=== PATIENT | male | born 1960 | race Caucasian/White ===

== ENCOUNTER 2019-07-31 09:17 | Day surgery (SDC) | payer BC ==
[2019-07-29 10:55] VITALS: BMI 40.6
[~2019-07-31 09:17] MED LIST: LIDOCAINE 1% 20 ML VIAL (10MG/ML) FOR IV START INTRADERMA PRN
[2019-07-31 09:42] VITALS: TEMP 97.9
[2019-07-31] MEDS: LACTATED RINGERS 1,000 ML IV SCH ×2 (09:58→10:12)
[2019-07-31 10:04] LABS: Glucose,Whole Blood 149 mg/dL (75-99)
[2019-07-31] MEDS ORDERED: PROPOFOL 10 MG/ML 20 ML VIAL IV ONE (10:14)
--- NOTE | 2019-07-31 10:55 | P.PCN ---
Date of Procedure: 07/31/19 Description of Procedure: BRIEF HISTORY: Patient is a 59-year-old pleasant male scheduled for an elective colonoscopy as a part of evaluation of blood in the stool. Patient reports last colonoscopy approximately 3 years ago. No change in bowel habits, gross blood per rectum or abdominal pain. PROCEDURE PERFORMED: Colonoscopy with polypectomy. PREOPERATIVE DIAGNOSIS: Blood in stool, last colonoscopy 3 years ago. ESTIMATED BLOOD LOSS: Minimal. IV sedation per Anesthesia. PROCEDURE: After informed consent was obtained, the patient, was brought into the endoscopy unit. IV sedation was administered by Anesthesia under continuous monitoring. Digital rectal examination was normal. Initially the Olympus CF-190 flexible video colonoscope was then inserted in the rectum, gradually advanced into the cecum without any difficulty. Careful examination was performed as the scope was gradually being withdrawn. Ileocecal valve and the appendiceal orifice were visualized and appeared normal. Prep was excellent. Mucosa of the cecum, ascending colon, transverse colon, descending colon, sigmoid colon, and rectum appeared normal. Multiple scattered diverticula in the left colon. 5 mm flat sigmoid polyp removed with cold snare polypectomy. Retroflexion was performed in the rectum and no lesions were seen, low-grade internal hemorrhoids. The patient tolerated the procedure well. IMPRESSION: Sigmoid polyp removed with cold snare polypectomy. Mild left colonic diverticulosis. Low-grade internal hemorrhoids. RECOMMENDATIONS: Findings of this examination were discussed with the patient his . Okay to resume diet. Okay to resume medications. Await pathology from polypectomy. Recommend repeat colonoscopy in 5 years for screening for a personal history of colon polyps.
[2019-07-31 10:56] VITALS: RESP 16
[2019-07-31 11:04] VITALS: BP 104/43; PULSE 78
== END 2019-07-31 11:24 | disposition home or self-care (01) ==
LOC: ORWHC2ENDO 09:17
PROVIDERS: ATTEND Internal Medicine
DX: D12.5 Benign neoplasm of sigmoid colon (principal); K57.30 Diverticulosis of large intestine without perforation or abscess without bleeding; K64.8 Other hemorrhoids; Z87.891 Personal history of nicotine dependence; Z90.49 Acquired absence of other specified parts of digestive tract; I10 Essential (primary) hypertension; E78.5 Hyperlipidemia, unspecified; E11.9 Type 2 diabetes mellitus without complications; E07.9 Disorder of thyroid, unspecified; N40.0 Benign prostatic hyperplasia without lower urinary tract symptoms; F39 Unspecified mood [affective] disorder; Z79.82 Long term (current) use of aspirin; Z79.890 Hormone replacement therapy; Z79.4 Long term (current) use of insulin; Z79.899 Other long term (current) drug therapy; Z88.1 Allergy status to other antibiotic agents; Z91.048 Other nonmedicinal substance allergy status
CPT/HCPCS: 88305; 45385; J2704

== ENCOUNTER → 2020-10-06 | Outpatient (CLI) | payer BC ==
--- NOTE | 2020-10-06 12:01 | XR ---
EXAMINATION TYPE: XR pelvis AP view DATE OF EXAM: 10/06/2020 CLINICAL HISTORY: Chronic pelvic and bilateral hip pain. TECHNIQUE: A single AP view of the pelvis is obtained. COMPARISON: None. FINDINGS: There is no acute fracture/dislocation evident in the pelvis. The sacroiliac joints appea r symmetric and within normal limits. Mild axial joint space loss and acetabular spurring of both hip s symmetric in appearance. The pubic symphysis is intact. The overlying soft tissue appears unremarka ble. IMPRESSION: As above.
--- NOTE | 2020-10-06 12:33 | XR ---
EXAMINATION TYPE: XR lumbosacral spine min 4V DATE OF EXAM: 10/06/2020 COMPARISON: None HISTORY: Chronic pain TECHNIQUE: 5 view lumbar spine FINDINGS: There are 5 lumbar-type vertebral bodies. Pedicles are intact. There is posterior disc spac e narrowing L4-5. Remaining Disc heights are preserved. Vertebral body heights are preserved. Mild fa cet degenerative change is present. On the left oblique view there is some lucency through the inferior (right) facet of L4 . This appea rs to be related to the disc level. Fracture at this location is not considered likely. However, if t his is a focus of pain, CT could be performed for confirmation. IMPRESSION: 1. Probable artifact inferior right L4 facet. CT lumbar spine can be performed for pain out of propo rtion to findings. 2. Minimal degenerative disc changes L4-5
== END ==
LOC: RADXRYALE 08:57
PROVIDERS: ATTEND Physician Assistant Medical
DX: M47.816 Spondylosis without myelopathy or radiculopathy, lumbar region (principal); M76.891 Other specified enthesopathies of right lower limb, excluding foot; M76.892 Other specified enthesopathies of left lower limb, excluding foot
CPT/HCPCS: 72110; 72170

== ENCOUNTER → 2022-05-11 | Day surgery (SDC) | payer BC ==
[~2022-05-11] MED LIST changes: +ALPRAZolam 0.25 MG TAB PO PRN; +ALPRAZolam 0.5 MG TAB PO PRN; +ASPIRIN 325 MG TAB PO STA; +ATORVASTATIN 40 MG TAB PO SCH; +ATORVASTATIN 80 MG TAB PO STA; +CYCLOBENZAPRINE 10 MG TAB PO SCH; +ESCITALOPRAM 20 MG TAB PO SCH; +GABAPENTIN 300 MG CAP PO SCH; +HEPARIN SODIUM 1,000 UN/ML (10ML VL) IV ONE; +HEPARIN SODIUM 1,000 UN/ML (10ML VL) ONE; +HEPARIN SODIUM,PORCINE 10,000 UNIT in SODIUM CHLORIDE 0.9% 1,000 ML IRRIGATION PRN; +HEPARIN SODIUM,PORCINE 2,500 UNIT in SODIUM CHLORIDE 0.9% 250 ML IRRIGATION PRN; +INSULIN ASPART (NovoLOG) 100 UNIT/ML VIAL SQ SCH; +INSULIN DETEMIR (LEVEMIR) 100 UNIT/ML SYR SQ ONE; +INSULIN DETEMIR (LEVEMIR) 100 UNIT/ML SYR SQ SCH; +IOPAMIDOL-370 100ML BTL INJ ONE; +IOPAMIDOL-370 125ML BTL INJ ONE; +LEVOTHYROXINE 100 MCG TAB PO SCH; -LIDOCAINE 1% 20 ML VIAL (10MG/ML) FOR IV START INTRADERMA PRN; +LIDOCAINE 1% INJ 10MG/ML (30 ML VIAL-PF) SQ ONE; +LISINOPRIL-HCTZ 20-25 MG 1 EACH TAB PO SCH; +METOPROLOL TARTRATE 25 MG TAB PO SCH; +MIDAZOLAM 2 MG/2 ML VIAL IVP ONE; +NITROGLYCERIN SL TABS 0.4 MG TAB SUBLINGUAL PRN; +NON FORMULARY DRUG (Aspirin [Adult Low Dose Aspirin Ec] 81 MG Tablet.Dr) PO SCH; +NON FORMULARY DRUG (Insulin Aspart [Novolog Flexpen] 100 UNIT/ML Insuln.Pen) SQ SCH; +NON FORMULARY DRUG (Insulin Degludec [Tresiba] 100 UNIT/ML Vial) SQ SCH; +PIOGLITAZONE 30 MG TAB PO SCH; +RX INFO: IV CONTRAST WAS GIVEN 1 EACH MISC MISCELLANE PRN; +SODIUM CHLORIDE 0.9% 1,000 ML IV SCH; +SODIUM CHLORIDE 0.9% 1,000 ML in EMPTY BAG 1 BAG IV SCH; +TAMSULOSIN 0.4 MG CAP.ER.24H PO SCH; +VERAPAMIL 2.5 MG/ML 2 ML AMP ONE; +VERAPAMIL SYRINGE (5 MG/10 ML) INTRAARTER ONE; +fentaNYL (PF) 50 MCG/ML 2 ML AMP IVP ONE; +fentaNYL (PF) 50 MCG/ML 2 ML AMP ONE; +traZODone HCL 50 MG TAB PO PRN
[2022-05-11 06:42] LABS: Glucose,Whole Blood 196 mg/dL (70-110)
[2022-05-11 06:50] LABS: Basophils % (A) 0 %; Eosinophils % (A) 1 %; HCT 35.7 % (39.0-53.0); HGB 11.9 gm/dL (13.0-17.5); Lymphocytes # (A) 0.9 k/uL (1.0-4.8); Lymphocytes % (A) 14 %; MCH 28.8 pg (25.0-35.0); MCHC 33.4 g/dL (31.0-37.0); MCV 86.2 fL (80.0-100.0); Mean Platelet Volume 8.7; Monocytes # (A) 0.1 k/uL (0-1.0); Monocytes % (A) 2 %; Neutrophils # (A) 4.9 k/uL (1.3-7.7); Neutrophils % (A) 82 %; Platelet Count 160 k/uL (150-450); RBC 4.14 m/uL (4.30-5.90); RDW 13.2 % (11.5-15.5); WBC 5.9 k/uL (3.8-10.6)
[2022-05-11 06:52] VITALS: TEMP 98
[2022-05-11 07:04] LABS: Calcium 8.8 mg/dL (8.4-10.2); Potassium 5.2 mmol/L (3.5-5.1)
--- NOTE | 2022-05-11 08:28 | P.CARDCATH ---
Date of Procedure: 05/11/22 Description of Procedure: Cardiac Catheterization: The patient is a 62-year-old male with a known history of hypertension, hyperlipidemia and diabetes who has been complaining of chest discomfort and dyspnea on exertion, had an abnormal MPI. Recommendations were made regarding cardiac catheterization, the risks and the complications were discussed with the patient who is in full understanding and agreement. Procedure Description: Patient was brought to director of cath lab in fasting semi-sedated state after receiving Fentanyl and Benadryl achieiving moderate conscious sedated state. Using Xylocaine Anesthesia and Seldinger technique, a 6-Croatian sheath was introduced in the right radial artery . Subsequently, selective coronary angiography was performed using a 5-Croatian 3.5 bend left Lexis catheter. Attempt to cannulate the right coronary artery using a 5-Croatian 3.5 and 5 Lexis were unsuccessful. A 5-Croatian pigtail catheter was introduced and an IRAQI view of the ascending aorta was performed subsequently a 6-Croatian AL 1 was used to cannulate the right coronary artery. Multiple views of the coronary artery including hemiaxial views were obtained. The right Lexis catheter was used to cross the aortic valve and LVEDP was calculated. Following that, catheter and sheath were removed. Hemostasis was obtained with deployment of TR band . There was no immediate complication. Patient was returned to room in stable condition. Of note, the patient received a total of 5000 units of intravenous heparin as well as intra-arterial verapamil. Findings: Left main: This is a short sized vessel, bifurcating LAD and left circumflex, left main has no high-grade stenosis LAD: This is a large size vessel, reaching to the apex giving rise to a diagonal branch, the LAD and its branches have no evidence of high-grade stenosis Left circumflex: This is a nondominant vessel, large in caliber giving rise to 2 obtuse marginal branch, the first one is larger in caliber and very proximal end has a 20% plaque proximally, the rest of the vessel has no high-grade stenosis RCA: This is a large dominant vessel that has a posterior takeoff, bifurcating into PDA and PLV, the mid right coronary artery has 20% plaque with no high- grade stenosis Aortogram: Aortogram was performed in the IRAQI view revealed a tricuspid aortic valve with no evidence of aortic regurgitation and posterior takeoff of the right coronary artery Left Ventriculogram: Not performed Hemodynamics: There was no gradient across the aortic valve, LVEDP was 10-14 mmHg Conclusion: 1. Mild disease in the left circumflex and RCA 2. Posterior takeoff of the RCA 3. Normal appearance of the ascending aorta 4. Normal LVEDP Recommendations: I Have recommended to continue present medical therapy with aggressive coronary risks modifications. The findings and the recommendations were discussed with the patient and the family and they were in full understanding and agreement. Duration of sedation is 26 minutes.
[2022-05-11 09:58] VITALS: RESP 18
[2022-05-11 17:03] VITALS: BP 133/66; PULSE 88
== END | disposition home or self-care (01) ==
LOC: CATHCVL 05:56
PROVIDERS: ATTEND Internal Medicine Interventional Cardiology
DX: I21.21 ST elevation (STEMI) myocardial infarction involving left circumflex coronary artery (principal); I10 Essential (primary) hypertension; E78.2 Mixed hyperlipidemia; E11.9 Type 2 diabetes mellitus without complications; G47.33 Obstructive sleep apnea (adult) (pediatric); F17.210 Nicotine dependence, cigarettes, uncomplicated; Z79.82 Long term (current) use of aspirin; Z79.899 Other long term (current) drug therapy
CPT/HCPCS: 93458; 93567; 80048; 85025; C1769 ×2; C1894; J2250; J2001; J3010; J1644; Q9967 ×2

== ENCOUNTER → 2022-07-10 | Outpatient (CLI) | payer BC ==
--- NOTE | 2022-07-10 21:35 | XR ---
EXAMINATION TYPE: XR cervical spine comp DATE OF EXAM: 07/10/2022 5:17 PM INDICATION: Patient age:Male; 62 years old; Reason for study: M542 CERVICALGIA; [facility]. COMPARISON: None TECHNIQUE: The cervical spine was imaged in frontal, lateral, Schwimmer, oblique, and odontoid projec tions. FINDINGS: The osseous structures show normal alignment without evidence of an acute fracture. There are osteoph ytes noted throughout the cervical spine on the anterior and lateral aspects of the vertebral bodies. Mild multilevel intervertebral disc height loss. Narrowing of the C2-C3 and C3-C4 neural canals bila terally. Pedicles are intact. Soft tissues are within normal limits. The odontoid appears intact. IMPRESSION: 1. No fracture or dislocation. 2. Mild degenerative disc disease changes of the cervical spine.
== END | disposition home or self-care (01) ==
LOC: RADXRYALE 17:04
PROVIDERS: ATTEND Physician Assistant
DX: M50.31 Other cervical disc degeneration, high cervical region (principal)
CPT/HCPCS: 72050

== ENCOUNTER → 2022-07-12 | Outpatient (CLI) | payer BC ==
--- NOTE | 2022-07-12 10:53 | US ---
EXAMINATION TYPE: US kidneys/renal and bladder DATE OF EXAM: 07/12/2022 COMPARISON: MRI 03/10/2022, outside CT 2021 CLINICAL HISTORY: N28.1 CYST OF KIDNEY, ACQUIRED. Cyst on left kidney per order- "see MRI". Hx of kid moody stones removed. EXAM MEASUREMENTS: Right Kidney: 15.9 x 7.2 x 5.5 cm Left Kidney: 12.2 x 5.4 x 6.0 cm Exam is very limited due to body habitus and overlying bowel gas. Right Kidney: *Appears enlarged. No hydronephrosis or masses seen Left Kidney: Limited. -Indistinct, hypoechoic area with shadowing seen lower pole, laterally: 3.1 x 2.5 x 3.4 cm. -Complex area seen upper pole: 1.8 x 1.5 x 1.1 cm. Bladder: Appears anechoic Bilateral Jets seen: Yes IMPRESSION: 1. Masslike area lower pole left kidney as well as complex lesion upper pole. CT recommended for furt her evaluation.
== END | disposition home or self-care (01) ==
LOC: RADUSWWP 09:52
PROVIDERS: ATTEND Urology
DX: N28.9 Disorder of kidney and ureter, unspecified (principal); N28.1 Cyst of kidney, acquired
CPT/HCPCS: 76770

== ENCOUNTER → 2022-08-05 | Outpatient (CLI) | payer BC ==
--- NOTE | 2022-08-06 23:52 | MR ---
EXAMINATION TYPE: MR kidney wo/w con DATE OF EXAM: 08/05/2022 10:57 AM INDICATION: Patient age:Male; 62 years old; Reason for study: N28.1 CYST OF KIDNEY. Cyst of left kidney COMPARISON: CT scan abdomen from outside institution 11/03/2021. Ultrasound 07/12/2022 TECHNIQUE: Multiplanar multi-sequence imaging was performed without contrast. Post contrast imaging was performed. Post IV contrast subtraction images were also submitted for review. IV Contrast: 13 cc Gadavist FINDINGS: LOWER CHEST: No gross irregularity. ABDOMEN Liver: Unremarkable. Gallbladder and Bile ducts: The gallbladder surgically absent. Pancreas: Unremarkable. Spleen: Unremarkable. Adrenal glands: Unremarkable. Kidneys: Right: No evidence of obstructive uropathy. Subcentimeter tiny foci of high T2 signal without enhance ment probable renal cysts. Left: No evidence of obstructive uropathy. High T2 low T1 signal nonenhancing renal cysts measuring u p to 15 mm with additional other subcentimeter high T2 low T1 signal probable cysts also present. The left inferior pole near an area of concern does not demonstrate mass. Stomach and Bowel: Unremarkable as visualized. Peritoneum: No evidence of pneumoperitoneum, free fluid, or adenopathy. Vasculature: Unremarkable. No aortic aneurysm. Musculoskeletal: The osseous structures appear intact. Abdominal wall: Unremarkable. IMPRESSION: No evidence of renal mass. 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
== END | disposition home or self-care (01) ==
LOC: RADMRIMAIN 09:34
PROVIDERS: ATTEND Urology
DX: N28.1 Cyst of kidney, acquired (principal)
CPT/HCPCS: 74183; A9585